=== PATIENT | female | born 1945 | race Caucasian/White ===

== ENCOUNTER → 2016-10-18 07:48 | Outpatient (CLI) | payer MEDICARE, OTHER ==
[2016-07-05 14:12] VITALS: BMI 25.9
[~2016-10-18 07:48] MED LIST: ALEVE220 MG PO; AMBIEN10 MG PO; BACTROBAN NASAL1 GM NASAL; CARAFATE1 G/10 ML PO; CIPRO250 MG PO; DOXYCYCLINE HY100 M2 PO; ELIQUIS2.5 MG PO; FERROUS GLUCON324 MG PO; HYDROCODONE-APA1 TAB PO; LEXAPRO20 MG PO; MECLIZINE HCL25 MG PO; METOPROLOL TART50 MG PO; MS CONTIN15 MG PO; OXYBUTYNIN CHLOR5 MG PO; PROTONIX40 MG PO; REQUIP1 MG PO; RESTORIL15 MG PO; SYNTHROID25 MCG PO; TYLENOL W/CODEI1 TAB PO; ZANAFLEX4 MG PO
== END | disposition home or self-care (01) ==
LOC: D.RAD 07:48
DX: K21.9 Gastro-esophageal reflux disease without esophagitis (principal); K44.9 Diaphragmatic hernia without obstruction or gangrene

== ENCOUNTER 2016-10-24 06:21 | Day surgery (SDC) | payer MEDICARE, OTHER ==
[2016-10-23 12:16] LABS: BASOPHILS 0.3 % (0.0-2.0); EOSINOPHILS 0.7 % (0-7); HEMATOCRIT 41.1 % (36.0-48.0); HEMOGLOBIN 12.8 g/dL (12-16); IMMATURE GRANULOCYTES 0.3 % (0-5); LYMPHOCYTES 22.6 % (15-50); MCH 25.5 pg (26.0-34.0); MCHC 31.1 g/dL (31.0-37.0); MCV 81.9 fL (80.0-100.0); MEAN PLATELET VOLUME 9.9 fL (7.4-10.4); MONOCYTES 5.6 % (2-11); NEUTROPHILS 70.5 % (40-80); PLATELET COUNT 208 10x3/uL (130-400); RBC 5.02 10x6/uL (4.00-5.40); RDW 13.9 % (11.5-14.5); WBC 7.3 10x3/uL (4.8-10.8)
[2016-10-23 12:38] LABS: CALC OSMOLALITY 288 mosm/kg (275-300); CALCIUM 9.3 mg/dL (8.5-10.1); CARBON DIOXIDE 28.9 mmol/L (21.0-32.0); CHLORIDE - SERUM 105 mmol/L (98-107); CREATININE - SERUM 0.6 mg/dL (0.6-1.3); GLUCOSE 111 mg/dL (74-106); POTASSIUM - SERUM 3.7 mmol/L (3.5-5.1); SODIUM 143 mmol/L (136-145); UREA NITROGEN 20 mg/dL (7-18); eGFR NON AFRICAN AMERICAN > 90 mL/min (90-120)
[2016-10-24] VITALS (9 sets, daily range): BP systolic 120–157; BP diastolic 60–77; BMI 25.4
[~2016-10-24] VITALS: Ht 172.7 cm; Wt 75.8 kg
--- NOTE | ~2016-10-24 | OP ---
PATIENT NAME: ROGER MCNULTY MEDICAL RECORD: [id number] :44 LOCATION:[facility] ADMISSION DATE: SURGEON: ALEJANDRO RODRIGUEZ MD DATE OF OPERATION: 10/24/2016 PREOPERATIVE DIAGNOSES: 1. Gastroesophageal reflux disease. 2. Hiatal hernia. 3. Hypertension. 4. Hypothyroidism. POSTOPERATIVE DIAGNOSES: 1. Gastroesophageal reflux disease. 2. Hiatal hernia. 3. Hypertension. 4. Hypothyroidism. PROCEDURE: Laparoscopic hiatal hernia repair with Maria M fundoplication. SURGEON: Alejandro Rodriguez MD. REPORT OF PROCEDURE: The patient's abdomen was prepped and draped in sterile fashion. A Veress needle was inserted in the left upper quadrant and the abdomen was insufflated. An 11-mm Visiport trocar was inserted in the midline just above the umbilicus. I could see the Veress needle and there was no sign of any injury to bowel or surrounding structures. At this point, the Veress needle was removed. A 12-mm trocar was placed in that area in the left subcostal space. A 5-mm trocar was placed in the epigastrium. A 5-mm trocar was placed in the left lateral abdomen and a 5-mm trocar was placed in the right lateral subcostal region. A liver retractor was inserted and the left lobe of the liver was elevated. I could see there was a large herniated diaphragmatic hernia with about a third of the stomach present within the thoracic cavity. The lesser omentum was taken down using Harmonic scalpel and this dissection was continued up to the right side of the right amanda. Once this portion was dissected free, I got into the thoracic cavity just behind the hernia sac and took down this hernia sac and released the thin attachments. We then went to the greater curvature of the stomach and began taking down the short gastrics using Harmonic scalpel. This was continued all the way around the fundus of the stomach to the left side of the right amanda. We again dissected off the hernia sac and went up into the thoracic cavity dissecting the hernia sac free. Once the hernia sac was completely freed up, we were able to excise it off of the proximal stomach and distal esophagus. We had a 360-degree inspection of the patient's esophagus at this point. We then reapproximated the edges of the diaphragmatic hiatus using interrupted 0 Ti-Cron times 3. The fundus of the stomach was then pulled around posterior to the esophagus and a 360-degree posterior wrap was performed. This was done using 3 interrupted 0 polydek sutures with the top and the bottom suture incorporating a bite of the esophagus. The wrap appeared to be in good position. There was a small area of bleeding and this was treated with Harmonic scalpel and was discontinued. There was no sign of any further bleeding or bowel injury. At this point, the 11 and 12-mm trocar site fascias were closed with interrupted 0 Vicryls using a Tyrone-Alysha suture passer device. The ports and insufflation were then removed. The subcutaneous tissues were infused with a total of 10 mL of 0.25% Marcaine with epinephrine and then closed with subcutaneous 5-0 Monocryl. OPERATIVE REPORT [id number] ROGER MCNULTY COMPLICATIONS: None. CONDITION: Stable. ANESTHESIA: General endotracheal and local. BLOOD LOSS: Minimal. TRANSINT:[id number] Voice Confirmation ID: [id number] DOCUMENT ID: [id number] ALEJANDRO RODRIGUEZ MD CC: AVELINO VILLAFANA MD [id number] DICTATION DATE: 10/24/16 1516 BUSINESS PERFORMANCE ADVISOR: 10/24/16 1608 REG [facility] [address] [id number]
[~2016-10-24 06:21] MED LIST changes: +BACLOFEN10 MG PO; +PEPCID20 MG PO
[2016-10-24] MEDS ORDERED: NYSTATIN ORAL SU5 ML (08:54)
--- NOTE | 2016-10-24 20:38 | NUR ---
PATIENT RESTING IN BED WITH EYES CLOSED. AROUSES EASILY TO VOICE. NO SIGNS OF DISTRESS NOTED. SCHEDULED MEDS GIVEN. SHIFT ASSESSMENT COMPLETED. DENIES ANY NEEDS AT THIS TIME. BED LOW. CALL LIGHT IN REACH
[2016-10-25] VITALS: BP 119/61
--- NOTE | 2016-10-25 02:00 | NUR ---
PT IN BED WITH NO DISTRESS. RESPIRATIONS EVEN AND UNLABORED. SIDE RAILS X 2. BED LOW. CALL LIGHT IN REACH.
[2016-10-25 04:00] VITALS: BP 111/51
--- NOTE | 2016-10-25 08:00 | NUR ---
PATIENT IS AWAKE AND ALERT SHE IS PASSING GAS, BURPING. ASSISTED UPTO BR.
--- NOTE | 2016-10-25 08:56 | NUR ---
PHARMACY CALLED AND SAID PT IS ALLERGIC TO IBUPROFEN, CALLED DR. RODRIGUEZ HE SAYS IT IS OK TO DO TORADOL LONG PT HAS NOT HAD ANY ANAPHYLAXIS. SPOKE TO PT SHE SAYS "NO SHE GETS SICK TO HER STOMACH" DR. RODRIGUEZ SAYS TO CONTINUE TORADOL.
--- NOTE | 2016-10-25 09:12 | NUR ---
PATIENT RECEIVED FIRST TORADOL DOSE.
--- NOTE | 2016-10-25 10:00 | NUR ---
PATIENT IS CALM NO NEEDS AT THIS TIME.
--- NOTE | 2016-10-25 13:00 | NUR ---
PATIENT HAD GONE FOR GASTRPGRAFIN SWALLOW STUDY, BUT IT WAS NOT SUCCESSFUL, THE PLAN IS KUB THEN REDO. PATIENT IS ASKING WHEN PROCEDURE WILL BE DONE.
--- NOTE | 2016-10-25 15:00 | NUR ---
PATIENT'S SPOUSE HERE SHE HAS NO C/O.
[2016-10-25 15:27] VITALS: BP 120/60
--- NOTE | 2016-10-25 18:00 | NUR ---
METAL ROOM DENTAL TECHNICIAN PUMP SAYING PAUSE AND GREEN LIGHT NOT ON WHEN PRESSED FOR PAIN MED. DID GET FRANCESCA RN TO ASSIST WITH CHANGING METAL ROOM DENTAL TECHNICIAN PUMP.
--- NOTE | 2016-10-25 18:55 | NUR ---
PATIENT ASKED IF PROCEDURE TO BE DONE TODAY, WILL PAGE DR. RODRIGUEZ OR HAVE GEOLOGY FACULTY MEMBER PAGE HIM.
--- NOTE | 2016-10-25 19:00 | NUR ---
PATIENT SUPINE IN BED. HOB 30 DEGREES. AAOX4. RR EVEN AND UNLABORED. 0 S/S OF DISTRESS. STATES PAIN IS A 7/10. IV TO RIGHT HAND PATENT WITH NO REDNESS OR SWELLING. LAP SITES X5 TO ABD WITH BANDAIDS. SCD'S ON. SRX2. BED LOW. CALL LIGHT WITHIN REACH.
[2016-10-25 20:00] VITALS: BP 130/57
--- NOTE | 2016-10-25 21:30 | NUR ---
NIGHTTIME MEDS GIVEN. PATIENT VERY ANXIOUS BECAUSE SHE WAS TOLD THAT DR. RODRIGUEZ MIGHT ORDER A KUB BECAUSE SWALLOW STUDY WAS INCONCLUSIVE. SHE WAS ALSO TOLD NOT TO DRINK. NO ORDERS TO SUPPORT THIS HAVE BEEN PUT IN THE COMPUTER. CLEAR LIQUIDS AND POSSIBLE D/C PER DR. RODRIGUEZ'S NOTE. PATIENT STATED SHE WAS TOLD BY DR. RODRIGUEZ THAT HE WOULD COME BACK AND SEE HER AND LET HER KNOW, BUT HE HAS NOT. ATTEMPTED TO REACH DR. RODRIGUEZ BUT WAS UNABLE BECAUSE DR. JULIEN IS MEDICAL CLAIMS MANAGER. RADIOLOGY SPOKE WITH DR. JULIEN WHO ORDERED THE KUB.
[2016-10-26] VITALS: BP 114/48
[2016-10-26 03:00] VITALS: BP 152/62
--- NOTE | 2016-10-26 03:50 | NUR ---
MORNING MEDS GIVEN. OFIRMEV HELD B/C MAX LIMIT REACHED. DESIGN LEAD SYRINGE CHANGED. PATIENT AWAKE AND STATES SHE HAS NOT SLEPT ALL NIGHT. SHE IS VERY ANXIOUS, CONTINUOUSLY ASKING RESULTS OF KUB. EXPLAINED TO PATIENT THAT I DID NOT HAVE THE RESULTS BUT WE WOULD FIRST THING IN THE MORNING. PATIENT STATED SHE FELT LIKE SHE WAS GOING TO "JUMP OUT OF HER SKIN." ATIVAN GIVEN.
--- NOTE | 2016-10-26 07:30 | NUR ---
SLEEPING AT THIS TIME. LYING ON RIGHT SIDE WITH RESPIRATIONS EVEN AND NON LABORED. CALL LIGHT IN REACH AND DOOR OPEN. SRX2 WITH BED IN LOWEST POSITION AND WHEELS LOCKED. CALL LIGHT IN REACH, WILL CONTINUE WITH PLAN OF CARE.
[2016-10-26 07:46] VITALS: BP 145/82
--- NOTE | 2016-10-26 09:34 | NUR ---
SCHEDULED MEDICATIONS ADMINISTERED AT THIS TIME PER ORDERS. ASSESSMENT PERFORMED PER FLOWSHEET. PT IS UP AT SINK PERFORMING ORAL CARE AND GROOMING INDEPENDENTLY. DENIES NAUSEA. PRN PAIN MEDICATION ADMINISTERED PER ORDER AND LEAD CASTER DISCONTINUED. IV SALINE LOCKED. PT DENIES FURTHER NEEDS. WILL CONTINUE WITH PLAN OF CARE.
--- NOTE | 2016-10-26 11:35 | NUR ---
AMBULATING IN HALLWAY WITH AND ASSISTANCE OF A CANE AT THIS TIME. DENIES PAIN. WILL CONTINUE WITH PLAN OF CARE.
[2016-10-26 12:12] VITALS: BP 156/64
[2016-10-26 13:13] VITALS: Ht 172.7 cm; Wt 75.8 kg
[2016-10-26] MEDS ORDERED: HYDROCODONE-APA1 TAB PO (14:42)
[2016-10-26] MEDS ORDERED: REGLAN10 MG PO (14:42)
[2016-10-26] MEDS ORDERED: PHENERGAN25 M1 PO (14:43)
--- NOTE | 2016-10-26 15:40 | NUR ---
IV TO RIGHT HAND D/C WITH CATH TIP INTACT. D/C AND DIET INSTRUCTIONS REVIEWED WITH PT. DENIES QUESTIONS OR CONCERNS. WILL D/C HOME WITH .
== END 2016-10-26 15:40 | disposition home or self-care (01) ==
LOC: D.OPS 06:21 → D.MS 06:21 → D.PAN 10:30 → D.OPS 12:00 → D.MS 16:00 → D.OPS 10-26 15:40
PROVIDERS: Surgery
DX: K44.9 Diaphragmatic hernia without obstruction or gangrene (principal); K21.9 Gastro-esophageal reflux disease without esophagitis; I10 Essential (primary) hypertension; E03.9 Hypothyroidism, unspecified; M19.90 Unspecified osteoarthritis, unspecified site

== ENCOUNTER 2016-11-22 08:00 | Outpatient (CLI) | payer MEDICARE, OTHER ==
[~2016-11-22 08:00] MED LIST changes: +NYSTATIN ORAL SU5 ML; +PHENERGAN25 M1 PO; +REGLAN10 MG PO
[2016-11-23 12:35] VITALS: BMI 25.3
[2016-11-23] MEDS ORDERED: PHENERGAN25 M1 PO (14:57)
[2016-11-23] MEDS ORDERED: REGLAN10 MG PO (14:58)
== END 2016-11-22 23:00 | disposition short-term general hospital (02) ==
LOC: D.OPS 08:00
DX: R13.10 Dysphagia, unspecified (principal); K21.9 Gastro-esophageal reflux disease without esophagitis; K44.9 Diaphragmatic hernia without obstruction or gangrene; I10 Essential (primary) hypertension; E03.9 Hypothyroidism, unspecified

== ENCOUNTER → 2016-11-22 12:13 | Outpatient (CLI) | payer MEDICARE, OTHER ==
[2016-10-26 13:13] VITALS: BMI 25.3
== END | disposition home or self-care (01) ==
LOC: D.RAD 12:13
DX: R13.10 Dysphagia, unspecified (principal)

== ENCOUNTER 2016-11-22 13:09 | Inpatient (IN) | payer MEDICARE, OTHER ==
[~2016-11-22] VITALS: Ht 172.7 cm; Wt 75.8 kg
[2016-11-22 13:55] LABS: BASOPHILS 0.3 % (0-2); EOSINOPHILS 0.8 % (0-7); HEMATOCRIT 42.7 % (36.0-48.0); HEMOGLOBIN 13.4 g/dL (12-16); IMMATURE GRANULOCYTES 0.2 % (0-5); MCH 25.6 pg (26.0-34.0); MCHC 31.4 g/dL (31.0-37.0); MCV 81.6 fL (80.0-100.0); MONOCYTES 7.3 % (2-11); NEUTROPHILS 73.4 % (40-80); PLATELET COUNT 210 10x3/uL (130-400); RBC 5.23 10x6/uL (4.00-5.40); RDW 15.6 % (11.5-14.5); WBC 6.3 10x3/uL (4.8-10.8)
[2016-11-22 13:59] LABS: APPEARANCE CLEAR (CLEAR); BILIRUBIN NEGATIVE (NEGATIVE); COLOR YELLOW (YELLOW); GLUCOSE NEGATIVE (NEGATIVE); KETONE MODERATE mg/dL (NEGATIVE); LEUKOCYTE ESTERASE 2+ (NEGATIVE); NITRITE NEGATIVE (NEGATIVE); PROTEIN TRACE mg/dL (NEGATIVE); UROBILINOGEN NORMAL (NORMAL)
[2016-11-22 14:07] LABS: BACTERIA FEW /hpf (NONE SEEN); EPITHELIAL CELLS 0-5 /hpf (0-5); MUCUS >1+ /lpf (NONE SEEN); RED CELLS - URINE 0-5 /hpf (0-5)
[2016-11-22 14:13] LABS: BILIRUBIN - TOTAL 0.71 mg/dL (0.2-1.3); CALCIUM 9.5 mg/dL (8.5-10.1); CARBON DIOXIDE 25.6 mmol/L (21.0-32.0); CREATININE - SERUM 0.8 mg/dL (0.6-1.3); POTASSIUM - SERUM 3.6 mmol/L (3.5-5.1); PROTEIN - SERUM 7.2 g/dL (6.4-8.2)
[2016-11-22 17:12] VITALS: BP 125/51; BMI 25.4
--- NOTE | 2016-11-22 17:32 | NUR ---
RECEIVED TO ROOM 2210 VIA STRETCHER FROM ER. A/O X3. NO C/O NAUSEA AT THIS TIME. LUNGS ARE CLEAR. SKIN IS INTACT WITHOUT REDNESS. DENIES NEEDS.
--- NOTE | 2016-11-22 19:11 | NUR ---
ATE ALL OF CLEAR LIQUID SUPPER. NO C/O AT THIS TIME. DENIES NEEDS. NO CHANGES NOTED.
[2016-11-22 20:00] VITALS: BP 128/64
[2016-11-23] VITALS (13 sets, daily range): BP systolic 112–133; BP diastolic 49–69; Ht 172.7 cm; Wt 75.8 kg
--- NOTE | 2016-11-23 07:50 | NUR ---
AWAKE AND ALERT. ORIENTED X3. HAVING EMESIS AND DIARRHEA AT THIS TIME. LUNGS ARE CLEAR BILATERALLY, NO COUGH NOTED. SKIN IS INTACAT WITHOUT REDNESS. IV TO LEFT WRIST PATENT WITHOUT REDNESS AT INSERTION SITE. GIVEN 4MG ZOFRAN SLOW IVP FOR NAUSEA. WILL MONITOR.
--- NOTE | 2016-11-23 09:39 | NUR ---
OFF FLOOR FOR PROCEDUR VIA BED.
--- NOTE | 2016-11-23 10:23 | NUR ---
BALLOON DILATION WITH SIZE 6 MM.
--- NOTE | 2016-11-23 10:54 | NUR ---
RETURNED FROM PROCEDURE. A/O X3. NO C/O
--- NOTE | 2016-11-23 12:10 | NUR ---
TOOK AM MEDS WITH WATER AND DRANK A CUP OF COFFEE THAT HAS STAYED DOWN AT THIS TIME. WILL CONTINUE TO MONITOR.
[2016-11-23] MEDS ORDERED: PHENERGAN25 M1 PO (14:57)
[2016-11-23] MEDS ORDERED: REGLAN10 MG PO (14:58)
--- NOTE | 2016-11-23 14:59 | OP ---
PATIENT NAME: ROGER MCNULTY MEDICAL RECORD: [id number] :44 LOCATION:[id number] ADMISSION DATE:11/22/16 SURGEON: BROOKE RODRIGUEZ MD DATE OF OPERATION: 11/23/2016 PREOPERATIVE DIAGNOSES: 1. Dysphagia, status post laparoscopic Maria M. 2. Gastroesophageal reflux disease. POSTOPERATIVE DIAGNOSES: 1. Dysphagia, status post laparoscopic Maria M. 2. Gastroesophageal reflux disease. PROCEDURE: EGD with esophageal dilatation. SURGEON: Brooke Rodriguez MD. REPORT OF PROCEDURE: An Olympus endoscope was advanced through the patient's mouth. As we went through the esophagus, we could see there was retained food and frothy material throughout the distance of the esophagus. There were no ulcerations or lesions present and there was no food bolus visible. As we got down to the distal esophagus, I was able to pass the scope through the GE junction into the stomach, there was some tension in passing the scope, eventually I able to get into the stomach and saw there was still some retained bilious fluid present in the stomach. We then inserted a dilation balloon and inflated this up to a level of 6. We performed this 3 separate times at the GE junction. After performing this, I was able to more easily pass the scope in and out through the GE junction. At this point, the insufflation and the scope were removed. COMPLICATIONS: None. CONDITION: Stable. ANESTHESIA: TIVA. BLOOD LOSS: None. TRANSINT:[id number] Voice Confirmation ID: [id number] DOCUMENT ID: [id number] BROOKE RODRIGUEZ MD at 1459 CC: [id number] DICTATION DATE: 11/23/16 1030 AIR CARGO SPECIALIST SUPERVISOR: 11/23/16 1115 ADM IN [facility] [address] [place] [address]
--- NOTE | 2016-11-23 15:56 | NUR ---
Patient Name: ROGER MCNULTY Admission Status: ER Accout number: [id number] Admission Date: 11-22-2016 : 1945 Admission Diagnosis: Attending: SAW Current LOS: 1 Anticipated DC Date: 11-23-2016 Planned Disposition: Home Primary Insurance: MEDICARE A & B Discharge Planning Comments: CM MET WITH PATIENT TO ASSESS DISCHARGE PLANNING/NEEDS PT STATE DISCHARGE PLAN IS TO RETURN HOME WHERE SHE LIVES ALONE BUT HAS FRIENDS WHO CAN HELP IF NEEDED, BUT DENIES THAT SHE WILL NEED ANY NEEDS. HER FRIEND KRYSTLE CERDA WILL COME AND DRIVE HER HOME. PT STATES SHE IS INDENPENDENT WITH ALL HER CARE. PT DENIES ANY OTHER DISCHARGE PLANNING/NEEDS CM WILL CONTINUE TO FOLLOW IF NEEDED. PCP: [facility]: [employer] [facility]: Melody Garcia * Is the patient Alert and Oriented? Yes 0 * How many steps to enter\exit or inside your home? 0 0 * PCP [facility] 0 * Pharmacy [facility] * Preadmission Environment Home Alone 0 * ADLs Independent 0 * Equipment None 0 * List name and contact numbers for known caregivers / representatives who currently or will assist patient after discharge: LIVE ALONE KRYSTLE CERDA WILL DRIVE HOME (FRIEND) 0 * Community resources currently utilized None 0 * Additional services required to return to the preadmission environment? Yes 0 * Can the patient safely return to the preadmission environment? Yes 0 * Has this patient been hospitalized within the prior 30 days at any hospital? No 0
--- NOTE | 2016-11-23 17:05 | NUR ---
DISCHARGED TO HOME AMBULATORY WITH FRIEND. DISCHARGE INSTRUCTIONS GIVEN BOTH VERBALLY, AND WRITTEN. ALL QUESTIONS ANSWERED. PATIENT VERBALIZED UNDERSTANDING OF SAME. NO NEW PRESCRIPTIONS NEEDED. IV TO LEFT WRIST AREA D/C WITH CATHETER INTACT.
--- NOTE | 2016-11-23 17:25 | NUR ---
CM NOTE: PT DISCHARGED HOME WITHOUT ANY NEEDS AND DENIED ANY DISCHARGE NEED AND FRIEND DROVE PT HOME IN STABLE CONDITION JAMES RAMIREZ RN
== END 2016-11-23 17:07 | disposition home or self-care (01) | DRG 392 ==
LOC: D.ER 13:09 → D.MS 15:55
PROVIDERS: Family Medicine; ADMIT Surgery
PROC: 0D738ZZ Dilation of Lower Esophagus, Via Natural or Artificial Opening Endoscopic (ICD-10-PCS; principal; 2016-11-23 09:30)
DX: R13.10 Dysphagia, unspecified (principal); E86.0 Dehydration; I10 Essential (primary) hypertension; G62.9 Polyneuropathy, unspecified; K21.9 Gastro-esophageal reflux disease without esophagitis; K44.9 Diaphragmatic hernia without obstruction or gangrene